=== PATIENT | female | born 1940 | race Caucasian/White ===

== ENCOUNTER 2020-03-22 21:01 | Emergency (ER) | payer MEDICARE ==
[~2020-03-22] VITALS: Ht 167.6 cm; Wt 64.0 kg
[2020-03-22 21:21] VITALS: BP 175/100
== END 2020-03-22 23:39 | disposition left against medical advice (07) ==
LOC: ER 21:01
DX: R06.02 Shortness of breath (principal); Z53.21 Procedure and treatment not carried out due to patient leaving prior to being seen by health care provider